=== PATIENT | female | born 1935 | race Two or more races ===

== ENCOUNTER 2019-10-12 11:00 | Outpatient (CLI) | payer MEDICARE, BC | END 2019-10-12 23:59 | disposition home or self-care (01) | LOC: MSC 11:00 | PROVIDERS: ATTEND Internal Medicine | DX: M54.5 Low back pain (principal); G47.00 Insomnia, unspecified; H00.019 Hordeolum externum unspecified eye, unspecified eyelid; R30.0 Dysuria; G25.81 Restless legs syndrome; I11.0 Hypertensive heart disease with heart failure; I50.9 Heart failure, unspecified; I25.2 Old myocardial infarction; I20.9 Angina pectoris, unspecified; Z79.01 Long term (current) use of anticoagulants; R55 Syncope and collapse; E03.9 Hypothyroidism, unspecified; H91.90 Unspecified hearing loss, unspecified ear; L21.9 Seborrheic dermatitis, unspecified; R00.1 Bradycardia, unspecified ==

== ENCOUNTER → 2019-10-18 | Outpatient (CLI) | payer MEDICARE, BC | END | disposition home or self-care (01) | LOC: MSC 02:20 | PROVIDERS: ATTEND Anesthesiology | DX: M51.26 Other intervertebral disc displacement, lumbar region (principal); M47.27 Other spondylosis with radiculopathy, lumbosacral region; M40.299 Other kyphosis, site unspecified; G89.4 Chronic pain syndrome; M54.2 Cervicalgia; M79.606 Pain in leg, unspecified; M25.562 Pain in left knee; M25.561 Pain in right knee; M25.9 Joint disorder, unspecified; M19.90 Unspecified osteoarthritis, unspecified site; Z99.89 Dependence on other enabling machines and devices ==

== ENCOUNTER 2021-06-06 13:00 | Outpatient (CLI) | payer MEDICARE, BC ==
[2021-06-06] MEDS ORDERED: COLLAGENASE 5 GM TUBE UD TP ONE (14:02)
== END 2021-06-06 23:59 | disposition home health service (06) ==
LOC: WOU 13:00
PROVIDERS: ATTEND Podiatrist Foot & Ankle Surgery
DX: S91.011A Laceration without foreign body, right ankle, initial encounter (principal); W22.8XXA Striking against or struck by other objects, initial encounter; Y92.89 Other specified places as the place of occurrence of the external cause; M25.571 Pain in right ankle and joints of right foot; R26.2 Difficulty in walking, not elsewhere classified; I50.9 Heart failure, unspecified; Z79.01 Long term (current) use of anticoagulants; Z79.899 Other long term (current) drug therapy
CPT/HCPCS: 11042

== ENCOUNTER 2021-06-13 13:30 | Outpatient (CLI) | payer MEDICARE, BC ==
[~2021-06-13 13:30] MED LIST: COLLAGENASE 5 GM TUBE UD TP ONE; LIDOCAINE 2% JEL 5 ML TUBE ONE
== END 2021-06-13 23:59 | disposition home health service (06) ==
LOC: WOU 13:30
PROVIDERS: ATTEND Surgery
DX: S91.011A Laceration without foreign body, right ankle, initial encounter (principal); W22.8XXA Striking against or struck by other objects, initial encounter; Y92.89 Other specified places as the place of occurrence of the external cause; M25.571 Pain in right ankle and joints of right foot; R26.2 Difficulty in walking, not elsewhere classified; Z79.01 Long term (current) use of anticoagulants; Z79.899 Other long term (current) drug therapy
CPT/HCPCS: 11042

== ENCOUNTER 2021-06-20 13:00 | Outpatient (CLI) | payer MEDICARE, BC ==
[2021-06-20] MEDS ORDERED: UREA 10% -AHA 4% CREAM 57 GM TUBE ONE (13:39)
== END 2021-06-20 23:59 | disposition home health service (06) ==
LOC: WOU 13:00
PROVIDERS: ATTEND Podiatrist Foot & Ankle Surgery
DX: S91.011A Laceration without foreign body, right ankle, initial encounter (principal); W22.8XXA Striking against or struck by other objects, initial encounter; Y92.89 Other specified places as the place of occurrence of the external cause; M25.571 Pain in right ankle and joints of right foot; R26.2 Difficulty in walking, not elsewhere classified; Z79.01 Long term (current) use of anticoagulants; Z79.899 Other long term (current) drug therapy
CPT/HCPCS: 11042